=== PATIENT | female | born 1990 | race Caucasian/White ===

== ENCOUNTER 2019-10-17 08:34 | Outpatient (CLI) | payer OTHER, SELFPAY ==
--- NOTE | ~2019-10-17 | US_ITS ---
EXAMINATION: US OB <= 14 weeks fetus EXAM DATE: 10/17/2019 09:47 INDICATION: , for dating. First trimester. TECHNIQUE: Pelvic obstetrical transabdominal sonogram was performed by a technologist. There are mu ltiple grayscale and Doppler images available for interpretation. There are no earlier studies of th is gestation for comparison. FINDINGS: Uterus measures 14.2 x 6.2 x 8.7 cm. There is intrauterine gestation sac. pole with heart rate confirmed at 165 beats per minute. The 4.3 cm crown-rump length corresponds to estimated gestational age by ultrasound of 11 weeks 1 day, estimated date of confinement 05/06/2020. Yolk sac is identified. There is no sonographic evidence of subchorionic hemorrhage. The chorion appears t o be anteriorly located. Right ovary is morphologically normal, the left ovary is not identified. IMPRESSION: Live intrauterine gestation, age by ultrasound 11 weeks 1 day. Reviewed, dictated and finalized at location B.
== END 2019-10-17 08:35 | disposition home or self-care (01) ==
PROVIDERS: Visit Provider Obstetrics & Gynecology
DX: Z32.01 Encounter for pregnancy test, result positive (principal); Z3A.11 11 weeks gestation of pregnancy
CPT/HCPCS: 76801

== ENCOUNTER 2020-02-14 10:30 | Outpatient (RCR) | payer OTHER, SELFPAY ==
[2020-02-14 11:00] LABS: Hemoglobin 12.4 g/dL (12.0-15.0)
[2020-02-14 11:31] LABS: Hemoglobin A1C 4.8 % (<5.7)
[2020-02-14 11:48] LABS: Vitamin D 25 Hydroxy 41.3 ng/mL
[2020-02-14 11:52] LABS: HIV 1/2 Ab P24 Ag Result Negative (Negative)
[2020-02-15] MEDS: RHO(D) IMMUNE GLOBULIN 300 MCG SYRINGE IM (19:10)
== END 2020-05-14 23:59 | disposition home or self-care (01) ==
LOC: ANHLAB 10:30
PROVIDERS: Visit Provider Obstetrics & Gynecology
DX: Z29.13 Encounter for prophylactic Rho(D) immune globulin (principal); Z11.4 Encounter for screening for human immunodeficiency virus [HIV]; O36.0990 Maternal care for other rhesus isoimmunization, unspecified trimester, not applicable or unspecified; Z3A.00 Weeks of gestation of pregnancy not specified
CPT/HCPCS: 36415; 82306; 83036; 85014; 85018; 85461; 86703; 90384; 96372; G0432; J2790

== ENCOUNTER 2020-02-15 18:10 | Observation (INO) | payer OTHER, SELFPAY ==
[2020-02-15 18:30] VITALS: TEMP 36.5
[2020-02-15 18:31] VITALS: BP 155/88; PULSE 102
[2020-02-15 18:46] VITALS: BP 139/80; PULSE 95
[2020-02-15 19:01] VITALS: BP 154/93; PULSE 101
[2020-02-15] MEDS: TERBUTALINE SULFATE 1 MG/ML VIAL 0.25 MG SUB-Q (19:06)
[2020-02-15 19:07] LABS: Add Urine Microscopic? NO; Appearance Urine Clear (Clear); Bilirubin Urine Negative (Negative); Blood Urine Negative (Negative); Color Urine Straw (Yellow); Glucose Urine UA Negative (Negative); Ketones Urine Negative (Negative); Leukocyte Esterase Ur Negative LEU/UL (Negative); Nitrate Urine Negative (Negative); Protein Urine Negative (Negative); Specific Grav Ur 1.006 (1.001-1.035); Urobilinogen Urine Negative mg/dL (<2.0)
[2020-02-15 19:16] VITALS: BP 129/77; PULSE 104
[2020-02-15 19:35] LABS: Fetal Fibronectin Negative
[2020-02-15 19:53] VITALS: BMI 34.2
[2020-02-15 20:01] VITALS: BP 124/80; PULSE 97
--- NOTE | 2020-03-10 07:41 | P.PNOB_ITS ---
OB - Triage/Final Diagnosis Evaluation Laboratory results: Laboratory Tests 02/15/20 02/15/20 18:56 18:59 Urine Color Straw Urine Appearance Clear Urine pH 6.0 Ur Specific [place] 1.006 Urine Protein Negative Urine Glucose (UA) Negative Urine Ketones Negative Ur Blood (Man) Negative Urine Nitrate Negative Urine Bilirubin Negative Urine Urobilinogen Negative Leukocyte Esterase Rfl Negative Fibronectin Negative Final Diagnosis (1) contractions: Code(s): O47.9 - False labor, unspecified Status: Acute
--- NOTE | 2020-03-11 13:00 | PM.OBTRLD ---
OB - Triage/Final Diagnosis Evaluation Laboratory results: Laboratory Tests 02/15/20 02/15/20 18:56 18:59 Urine Color Straw Urine Appearance Clear Urine pH 6.0 Ur Specific [place] 1.006 Urine Protein Negative Urine Glucose (UA) Negative Urine Ketones Negative Ur Blood (Man) Negative Urine Nitrate Negative Urine Bilirubin Negative Urine Urobilinogen Negative Leukocyte Esterase Rfl Negative Fibronectin Negative Final Diagnosis (1) contractions: Code(s): O47.9 - False labor, unspecified Status: Acute
== END 2020-02-15 20:40 | disposition home or self-care (01) ==
PROVIDERS: Admitting Provider Obstetrics & Gynecology; Visit Provider Obstetrics & Gynecology
DX: O60.03 Preterm labor without delivery, third trimester (principal); Z3A.28 28 weeks gestation of pregnancy
CPT/HCPCS: 81003; 82731; 96372; G0378; G0379; J3105

== ENCOUNTER 2020-03-16 08:58 | Outpatient (RCR) | payer OTHER, SELFPAY ==
--- NOTE | ~2020-03-16 | US_ITS ---
EXAMINATION: US OB BPP wo non-stress DATE: 03/16/2020 10:25 INDICATION: Abnormal nonstress test. Gestational diabetes. Two-vessel cord. Third trimester. TECHNIQUE: Real-time pelvic ultrasound was performed. COMPARISON: Ultrasound 10/17/2019 FINDINGS: There is a single living fetus in vertex presentation. The placenta is anterior. heart rate is 161 beats per minute (bpm). The amniotic fluid index is 10.3 cm, which is normal. Biophysical profile performed by the technologist: breathing (30 sec sustained breathing in 30 minutes): 2 out of 2 movement (3 gross body movements in 30 minutes): 2 out of 2 tone (one episode of kecyttq-hfgjskjnr-pzduxqk limb movement): 2 out of 2 Amniotic fluid pocket (2 cm): 2 out of 2 Total score: 8 out of 8 IMPRESSION: 1. Single living fetus in vertex presentation. 2. Biophysical profile 8 out of 8. Reviewed, dictated and finalized at location B.
[2020-03-16 10:44] VITALS: BP 119/64; PULSE 92
== END 2020-04-29 15:21 | disposition home or self-care (01) ==
LOC: ANHOBOP 08:58
PROVIDERS: Visit Provider Obstetrics & Gynecology
DX: O24.419 Gestational diabetes mellitus in pregnancy, unspecified control (principal); Z3A.32 32 weeks gestation of pregnancy
CPT/HCPCS: 59025; 76819

== ENCOUNTER 2020-03-23 08:48 | Observation (INO) | payer OTHER, SELFPAY ==
--- NOTE | ~2020-03-23 | US_ITS ---
EXAMINATION: US OB limited EXAM DATE: 03/23/2020 12:22 INDICATION: , contractions. 3rd trimester. TECHNIQUE: Pelvic obstetrical transabdominal sonogram was performed by a technologist. There are mu ltiple grayscale and Doppler images available for interpretation. Comparison is made to prior examina tion from 03/16/2017. FINDINGS: There is a single fetus identified in vertex presentation with a heart rate of 154 beats pe r minute. The placenta is located in the anterior position. There is no sonographic evidence of retr oplacental hemorrhage identified. The amniotic fluid index is 11.2 centimeters, which is normal. IMPRESSION: 1. Single fetus with heart rate of 152 bpm. 2. Normal PAM 11.2 cm. Reviewed, dictated and finalized at location B.
[2020-03-23 09:07] VITALS: BP 132/79; PULSE 89
[2020-03-23 10:30] VITALS: BMI 34.0
[2020-03-23] MEDS: NIFEdipine 10 MG CAPSULE PO ×2 (10:48→11:36)
[2020-03-23 10:58] VITALS: TEMP 37.2
[2020-03-23 11:08] LABS: Add Urine Microscopic? NO; Appearance Urine Clear (Clear); Bilirubin Urine Negative (Negative); Blood Urine Negative (Negative); Color Urine Yellow (Yellow); Glucose Urine UA Negative (Negative); Ketones Urine Negative (Negative); Leukocyte Esterase Ur Negative LEU/UL (NEGATIVE); Nitrate Urine Negative (Negative); Protein Urine Negative (Negative); Specific Grav Ur 1.011 (1.001-1.035); Urobilinogen Urine Negative mg/dL (<2.0)
[2020-03-23 11:39] LABS: Fetal Fibronectin Negative
--- NOTE | 2020-03-23 14:18 | OBADM ---
This patient, Chitra Freeman, admitted to the OB room OB Post 112 for observation. Patient/family oriented to hospital policies and general routines including ID bracelet, bed and alarms, visiting hours, pain management, procedures, bathroom and other care routines, personal items, smoking policy, room service/diet, and visiting hours. Patient/Family are encouraged to report perceived risks to care and to ask questions if they do not understand what they are told or what they should do.
--- NOTE | 2020-03-23 14:20 | PC.NURSE ---
1025- called,informed pt was sent over from the office for pre-term contractions during her NST. Informed pt is elin every 6 minutes or so and states they are more uncomfortable than what they were in the office. Pt states she has had some watery discharge and tenderness all over her abdomen, informed ROM plus was performed but not done with results. Orders received to perform sterile spec,FFN,SVE bedside US for placenta check and PAM. 10mg of procardia ordered now and repeat in 30 minutes.
--- NOTE | 2020-03-23 14:24 | PC.NURSE ---
1227- called in for update, informed pt isn't elin anymore but still c/o lower back pain. Orders received to send home on procardia 10mg q8hrs.
[2020-03-24 02:39] LABS: Glucose Point of Care 79 (65-105)
[2020-03-24 02:39] LABS: Glucose Point of Care 65 (65-105)
--- NOTE | 2020-03-26 07:48 | PM.OBTRLD ---
OB - Triage/Final Diagnosis Evaluation Laboratory results: Laboratory Tests 03/23/20 03/23/20 03/23/20 10:58 10:58 11:30 POC Capillary Glucose 65 Urine Color Yellow Urine Appearance Clear Urine pH 6.0 Ur Specific [place] 1.011 Urine Protein Negative Urine Glucose (UA) Negative Urine Ketones Negative Ur Blood (Man) Negative Urine Nitrate Negative Urine Bilirubin Negative Urine Urobilinogen Negative Ur Leukocyte Esterase Negative Fibronectin Negative 03/23/20 12:21 POC Capillary Glucose 79 Urine Color Urine Appearance Urine pH Ur Specific [place] Urine Protein Urine Glucose (UA) Urine Ketones Ur Blood (Man) Urine Nitrate Urine Bilirubin Urine Urobilinogen Ur Leukocyte Esterase Fibronectin Final Diagnosis (1) contractions: Code(s): O47.9 - False labor, unspecified Status: Acute
== END 2020-03-23 13:10 | disposition home or self-care (01) ==
PROVIDERS: Admitting Provider Obstetrics & Gynecology; Visit Provider Obstetrics & Gynecology
DX: O47.03 False labor before 37 completed weeks of gestation, third trimester (principal); Z3A.33 33 weeks gestation of pregnancy
CPT/HCPCS: 76815; 81003; 82731; 84112; 87086; 87088; A9270; G0378; G0379

== ENCOUNTER 2020-04-16 16:06 | Outpatient (CLI) | payer OTHER, SELFPAY | END 2020-04-16 17:05 | disposition home or self-care (01) | LOC: ANHOBOP 17:00 | PROVIDERS: Visit Provider Obstetrics & Gynecology | DX: O41.8X90 Other specified disorders of amniotic fluid and membranes, unspecified trimester, not applicable or unspecified (principal) | CPT/HCPCS: 59025; 84112 ==

== ENCOUNTER 2020-04-29 04:49 | Inpatient (IN) | payer OTHER, SELFPAY ==
[2020-04-29] VITALS (29 sets, daily range): BP systolic 105–151; BP diastolic 57–100; PULSE 67–106; RESP 16–18; TEMP 36.3–37.3; O2SAT 96; BMI 33.8
--- NOTE | 2020-04-29 04:49 | LDADM ---
This patient, Chitra Freeman, was admitted to Labor/Delivery/Recovery 105 on 04/29/20 at 04:49. Plans for labor, pain management and were discussed with patient. Patient/family oriented to hospital policies and general routines including ID bracelet, bed and alarms, visiting hours, pain management, procedures, bathroom and other care routines, personal items, smoking policy, room service/diet and guest tray routines, infant security routines, and visiting hours. Patient/Family are encouraged to report perceived risks to care and to ask questions if they do not understand what they are told or what they should do. See OBIX for further documentation.
[2020-04-29 05:17] LABS: Glucose Point of Care 97 (65-105)
[2020-04-29 05:19] LABS: Basophils Percent Auto 0.3 % (0.2-1.2); Eosinophils Absolute Auto 0.2 K/mm3 (0-0.3); Hematocrit 39.3 % (37.0-47.0); Hemoglobin 13.4 g/dL (12.0-15.0); Immature Granulocyte Absolute 0.04 K/mm3 (0.00-0.031); Immature Granulocyte Percent A 0.4 % (0-0.5); Lymphocytes Absolute Auto 2.03 K/mm3 (0.9-3.2); Lymphocytes Percent Auto 21.9 % (18.3-44.2); Mean Corpuscular HGB Conc 34.1 g/dl (32-36); Mean Corpuscular Hemoglobin 27.5 pg (26-34); Mean Corpuscular Volume 80.7 fl (80-100); Mean Platelet Volume 10.4 fl (7.4-10.4); Monocytes Absolute Auto 0.6 K/mm3 (0.1-0.6); Monocytes Percent Auto 5.9 % (2.6-8.5); Neutrophils Absolute Auto 6.5 K/mm3 (1.3-6.7); Neutrophils Percent Auto 69.5 % (45.5-73.1); Platelet Count Result 288 k/mm3 (150-375); Red Blood Count 4.87 M/mm3 (4.2-5.4); Red Cell Distribution Width 14.1 % (11.5-14.5); White Blood Count 9.3 K/mm3 (4.5-10.0)
[2020-04-29] MEDS: AMPICILLIN 2 GM/NS 100 ML 2 GM/100 ML BAG IVPB (05:19)
[2020-04-29] MEDS: LACTATED RINGERS 1,000 ML 125 ML IV CONT (05:20)
[2020-04-29] MEDS: OXYTOCIN 30 UNITS/NS 500 ML 30 UNITS/500 ML BAG IV CONT (05:44)
[2020-04-29 07:56] LABS: Rapid Plasma Reagin Non-Reactive (NonReactive)
[2020-04-29 08:02] LABS: Glucose Point of Care 76 (65-105)
--- NOTE | 2020-04-29 08:43 | WPDOBADMIT ---
Obstetrics - Admit Note Admission Note: AROM clear fluid /-2 vertex record reviewed. No pertinent additions to the history and/or any subsequent changes in the physical findings that are not consistent with the expected course of the were found. Additions to the history and/or subsequent changes in the physical findings follow. None.
[2020-04-29] MEDS: AMPICILLIN 1 GM/NS 50 ML 1 GM/50 ML BAG IVPB (09:25)
[2020-04-29] MEDS: OXYTOCIN 30 UNITS/NS 500 ML 30 UNITS/500 ML BAG 125 UNITS IV CONT (10:54)
[2020-04-29 11:41] LABS: Glucose Point of Care 72 (65-105)
[2020-04-29] MEDS: IBUPROFEN 600 MG TABLET PO (13:04)
[2020-04-29] MEDS: WITCH HAZEL 40 PADS 1 PAD TOPICAL (13:06)
[2020-04-29] MEDS: BENZOCAINE 20% AER SPR (*SP) 56 GM CAN 1 SPRAY TOPICAL (13:06)
--- NOTE | 2020-04-29 15:10 | PC.NURSE ---
Dr. Nance updated on QBL. Discussed pt had an additional 373 gms of blood loss during recovery- never really had any gushes with fundal massage or any clots- just more blood loss than expected. Pt voided and Pitocin continued. Pt was just going to be moved upstairs and peripad and ice pack were saturated with rubra again- small stringy clot noted on pad- additional 221 QBL noted. Order received for Methergine IM x's 1.
--- NOTE | 2020-04-29 15:10 | PC.NURSE ---
Dr. Nance also informed her 2nd IV bag with Pitocin just finished infusing.
[2020-04-29] MEDS: METHYLERGONOVINE MALEATE 0.2 MG/ML VIAL IM (15:20)
--- NOTE | 2020-04-29 19:16 | OBPPTRN ---
Patient transferred to post room # [id number] (wheelchair ). Support person present. Oriented to unit, room, information board, rooming in, admission packet and security measures. Patient verbalizes understanding.
[2020-04-30] MEDS: IBUPROFEN 600 MG TABLET PO ×2 (00:22→09:44)
[2020-04-30 03:22] LABS: Hemoglobin 11.5 g/dL (12.0-15.0)
[2020-04-30 08:35] VITALS: BP 130/79; PULSE 82; RESP 18; TEMP 36.7; O2SAT 100
[2020-04-30 09:00] VITALS: PULSE 82; RESP 18; O2SAT 100
[2020-04-30] MEDS: MULTIVIT/MIN/PREN/FOL AC/IRON TABLET 1 TAB PO (09:43)
--- NOTE | 2020-04-30 11:25 | PC.NURSE ---
Patient was given the opportunity to view the discharge video Mother & Baby Care, The First Two Weeks and to ask questions. Patient declined viewing the video and has been given the mother/baby guide for home reference.
--- NOTE | 2020-04-30 12:19 | WPDOBCIRC ---
OB [place] - Circumcision Consent: Potential risks, benefits, and alternatives have been discussed and questions answered. Family agrees to proceed with circumcision. Preoperative Diagnosis: Normal Foreskin. Postoperative Diagnosis: Normal Foreskin. Date of Circumcision: 04/30/20 Time of Circumcision: 08:45 Type of Circumcision: GOMCO with 1.1 Anesthesia: Ring Block Foreskin: The foreskin was examined and found to be grossly normal. Estimated Blood Loss: Minimal
[2020-04-30] MEDS: RHO(D) IMMUNE GLOBULIN 300 MCG SYRINGE IM (12:53)
[2020-05-01 10:22] VITALS: BP 128/74; PULSE 73; RESP 20; O2SAT 98
--- NOTE | 2020-05-09 11:11 | PM.OBPRVD ---
OB - Delivery Note Procedure Delivery date: 04/29/20 Procedure: events: Gestational Diabetes Intrapartal events: None Induction method: AROM and per pitocin protocol Delivery monitor: external FHT and external uterine Route of delivery: Episiotomy description: None Laceration description: None Delivery repair: vicryl Specimen: Yes Estimated blood loss (mL): 200 Anesthesia type: Epidural Baby Date of : 04/29/20 Time of : 10:18 Weeks of gestation at delivery: 39 gender: Male Weight (pounds): 7 Weight (ounces): 0 presentation: vertex position: Left Occiput Anterior Placenta delivery description: Spontaneous cord vessel description: 3 Vessels and Clamped/Cut score one minute: 9 score five minutes: 9
--- NOTE | 2020-05-09 11:17 | PM.OBDSVD ---
DS: Admitting Diagnosis Admitting Diagnosis Admitting Diagnosis: Induction of Labor DS: Discharge Diagnosis Discharge Diagnosis (1) (normal spontaneous vaginal delivery): Code(s): O80 - Encounter for full-term uncomplicated delivery Status: Acute OB - DS: Summary OB Procedures : Ultrasound OB Procedures Intrapartum: Spontaneous Vag Delivery OB Procedures: : None Time Spent with Patient Time attestation: Total time spent providing and/or coordinating discharge services: DS: Data Data Completed and Pending Completed studies during hospitalization: Pending at discharge 04/29/20 10:24 Surgical [PTH] Routine Discharge Plan Discharge Attending physician on discharge: Helder Nance Discharging Clinician: Helder Nance Patient Disposition: Home, Self-Care Activity: pelvic rest Diet: regular Discharge Instructions: Education: Mom and Baby Guide Given to: Mother Follow-Up: Call your delivering provider's office for an appointment to be seen in: Call for appointment Mom and baby should come [facility] for the follow-up appointment. Appointment Date/Time: Friday, May 01, 2020 at 10:00 am What to expect at your follow-up visit: Blood Pressure Check Physical Assessment Call [phone] if you are unable to keep your appointment time. BREAST CARE: * Wear a snug supportive bra. * For engorgement discomfort: Breast Feeding: * Apply warm moist washcloths * Express milk as needed to relieve engorgement * Wear loose clothing Bottle Feeding: * May apply ice packs * For sore nipples: * Identify correct latch-on * Apply warm moist washcloths before and after nursing * Air dry nipples after nursing * May apply Lansinoh cream to nipples EPISIOTOMY/PERINEAL CARE: * Until bleeding stops, use your blair bottle after urinating * Change your pad frequently throughout the day * You may take sitz baths several times a day (fill your bathtub with warm water and soak for 20 minutes.) Do NOT bathe in the water * No tub baths until seen by your physician - You may shower ACTIVITY: * Rest as much as possible. * Do not exercise or lift anything heavier than your baby (such as laundry or other children.) * Avoid stairs or driving as much as possible. * Do not put anything into the vagina. No douching, tampons, or sexual activity until seen by physician. NOTIFY PHYSICIAN IF YOU HAVE ANY QUESTIONS OR IF ANY OF THE FOLLOWING SYMPTOMS OCCUR: * If your vaginal bleeding becomes foul smelling. * If your vaginal bleeding becomes more heavy than a period or if your bleeding changes from pink to bright red. However, you may pass an occasional walnut-sized clot once or twice for the first week . * If you experience a sharp, shooting pain in you calves. * If you discover a hard, reddened area on your breast or if you experience flu-like symptoms. DIET: * Eat regular, well-balanced meals. * Drink plenty of fluids daily. If , drink to thirst. Stand Alone Forms: General Discharge Information Follow-up/Referrals: Helder Nance MD [Physician] - Discharge Medications: Continued PNV [id number] fumarate-FA [] 28 mg iron- 800 mcg Tablet 1 tablet PO DAILY RF: 0 ergocalciferol (vitamin D2) 1,250 mcg (50,000 unit) capsule See Rx Instructions .ROUTE .COMPLEX RF: 0 Discontinued insulin aspart U-100 [Novolog U-100 Insulin aspart] 100 unit/mL solution See Rx Instructions .ROUTE .COMPLEX RF: 0 Novolin N NPH U-100 Insulin 100 unit/mL suspension 4 unit SUBCUT QAM RF: 0 insulin aspart U-100 [Novolog U-100 Insulin aspart] 100 unit/mL solution 36 unit subcut HS RF: 0 Novolin N NPH U-100 Insulin 100 unit/mL suspension 22 unit SUBCUT QACDINNER RF: 0 Date of admission: 04/29/20 04:49
== END 2020-04-30 14:00 | disposition home or self-care (01) | DRG 807 ==
LOC: ANHLDR 04:53 → ANHOB2 15:48
PROVIDERS: Admitting Provider Obstetrics & Gynecology; Visit Provider Obstetrics & Gynecology
DX: O24.424 Gestational diabetes mellitus in childbirth, insulin controlled (principal); Z37.0 Single live birth; Z3A.39 39 weeks gestation of pregnancy; O69.89X0 Labor and delivery complicated by other cord complications, not applicable or unspecified; O62.3 Precipitate labor
CPT/HCPCS: 36415; 85014; 85018; 85025; 85461; 86592; 86850; 86880; 86900; 86901; 86902; 88307; 90384; A9270; J0290; J2210; J2590; J2790; J2795; J7120

== ENCOUNTER 2020-08-21 00:35 | Outpatient (CLI) | payer OTHER, SELFPAY ==
[2020-08-21 18:46] LABS: SARS-CoV-2 RNA PCR Negative
== END 2020-08-21 00:36 | disposition home or self-care (01) ==
LOC: ANHCOVIDDT 00:36
PROVIDERS: Visit Provider Obstetrics & Gynecology
DX: Z01.812 Encounter for preprocedural laboratory examination (principal); Z20.822 Contact with and (suspected) exposure to COVID-19
CPT/HCPCS: C9803; U0003; U0005

== ENCOUNTER 2020-12-14 14:31 | Emergency (ER) | payer OTHER, SELFPAY ==
[2020-12-14] VITALS (8 sets, daily range): BP systolic 138–161; BP diastolic 91–117; PULSE 78–86; RESP 16–18; TEMP 36.1–36.8; O2SAT 97–100
[2020-12-14 17:53] LABS: Basophils Absolute Auto 0.1 K/mm3 (0.0-0.1); Basophils Percent Auto 0.4 % (0.2-1.2); Eosinophils Absolute Auto 0.1 K/mm3 (0-0.3); Eosinophils Percent Auto 0.9 % (0-4.4); Hemoglobin 14.4 g/dL (12.0-15.0); Immature Granulocyte Absolute 0.05 K/mm3 (0.00-0.031); Immature Granulocyte Percent A 0.4 % (0-0.5); Immature Platelet Fraction Pct 4.3 % (0.9-11.2); Lymphocytes Absolute Auto 1.85 K/mm3 (0.9-3.2); Lymphocytes Percent Auto 13.7 % (18.3-44.2); Mean Corpuscular HGB Conc 34.3 g/dl (32-36); Mean Corpuscular Hemoglobin 27.5 pg (26-34); Mean Corpuscular Volume 80.3 fl (80-100); Mean Platelet Volume 10.3 fl (7.4-10.4); Monocytes Absolute Auto 0.4 K/mm3 (0.1-0.6); Neutrophils Percent Auto 81.6 % (45.5-73.1); Platelet Count Result 363 k/mm3 (150-375); Red Blood Count 5.23 M/mm3 (4.2-5.4); Red Cell Distribution Width 12.5 % (11.5-14.5); White Blood Count 13.5 K/mm3 (4.5-10.0)
[2020-12-14 18:01] LABS: Anion Gap 10 mmol/L (8-16); Blood Urea Nitrogen 10 mg/dL (7-17); Carbon Dioxide 22 mmol/L (22-30); Chloride 106 mmol/L (98-107); Estimated CRCL calculation 179 ml/min; Estimated Glomerular Filt Rate > 60; Glucose 143 mg/dL (65-105); Potassium 4.2 mmol/L (3.4-5.0); Sodium 138 mmol/L (137-145)
--- NOTE | 2020-12-14 18:09 | ED.GENADULT ---
HPI - General Adult General Chief complaint: Headache Stated complaint: migraine all weekend, high bp Time Seen by Provider: 12/14/20 17:29 Source: patient and RN notes reviewed Mode of arrival: ambulatory Limitations: no limitations History of Present Illness HPI narrative: Patient is a 30-year-old female who presents to emergency department for evaluation of migraine headache noting history of chronic migraines since the of her child 8 months ago she has been having increasing migraines is also getting ready to start a new job. Patient denies any injury or trauma or illness. Patient notes she has had some emesis. Patient is followed by her primary care doctor for this. Patient took [id number] medications with minimal improvement on arrival presents with normal gait no distress Related Data Allergies Allergy/AdvReac Type Severity Reaction Status Date / Time No Known Allergies Allergy Verified 12/14/20 17:36 Review of Systems Review of Systems: All systems reviewed & are unremarkable except as noted in HPI and below PMFSH Past Medical History Medical History (normal spontaneous vaginal delivery) contractions Family History Family History Mother Diabetes mellitus Sibling Diabetes mellitus Depression Father Depression Social History Social History Smoking status: Former smoker Substance use: never Last use: 2013 Gender identity (if verbalized by the patient): Female Spiritual care concerns: No Exam Narrative: Exam Narrative: GENERAL: Well-appearing, well-nourished, and in no acute distress. HEAD: Normocephalic, atraumatic. EYES: PERRLA and EOMI. ENT: Nares clear, no rhinorrhea or epistaxis. Mucous membranes moist. NECK: Supple. No adenopathy or masses. No carotid bruits or JVD CHEST: Clear to auscultation. No respiratory distress. No wheezes rales or rhonchi HEART: Regular rate and rhythm. No murmur heard. EXTREMITIES: Normal range of motion. No edema. SKIN: Warm, dry, no rash. NEURO: No focal deficits. Alert and oriented x3. Cranial nerves II through XII grossly intact. Normal speech and gait PSYCH: Normal mood and affect. Course Course Emergency Course: Patient in the room no distress feeling much better will be discharged home Vital Signs Vital signs: Vital Signs Temperature 97.0 F L 12/14/20 15:24 Pulse Rate 86 12/14/20 15:24 Respiratory Rate 18 12/14/20 15:24 Blood Pressure 161/98 H 12/14/20 15:24 Pulse Oximetry 100 12/14/20 15:24 Temperature 97.0 F L 12/14/20 15:24 Pulse Rate 80 12/14/20 18:01 Respiratory Rate 16 12/14/20 18:01 Blood Pressure 142/91 H 12/14/20 18:16 Pulse Oximetry 98 12/14/20 18:16 Medical Decision Making MDM Narrative Medical decision making narrative: Patients headache was not sudden or maximal in onset. There are o focal neurological deficits on exam. Subarachnoid hemorrhage is felt to be unlikey at this time. There is no history of fever, and neck is supple without meningismus, making meningitis unlikely. No traumatic history or signs of trauma on exam. No risk factors for CVA, risk factors reviewed. NO ocular signs on exam and in history to suggest acute glaucoma. Patients headache is felt to be a reasonable candidate for outpatient evaluation Vital Signs Vital Signs: Vital Signs Temperature 97.0 F L 12/14/20 15:24 Pulse Rate 86 12/14/20 15:24 Respiratory Rate 18 12/14/20 15:24 Blood Pressure 161/98 H 12/14/20 15:24 Pulse Oximetry 100 12/14/20 15:24 Temperature 97.0 F L 12/14/20 15:24 Pulse Rate 80 12/14/20 18:01 Respiratory Rate 16 12/14/20 18:01 Blood Pressure 142/91 H 12/14/20 18:16 Pulse Oximetry 98 12/14/20 18:16 Lab Data Result diagrams: 12/14/20 17:45 12/14/20 17:45
[2020-12-14] MEDS: KETOROLAC 30 MG/ML VIAL (*BKC) IV PUSH (18:26)
[2020-12-14] MEDS: diphenhydrAMINE HCl INJ 50 MG/ML VIAL 25 MG IV PUSH (18:26)
[2020-12-14] MEDS: FAMOTIDINE 20 MG/2 ML VIAL IV PUSH (18:26)
[2020-12-14] MEDS: SODIUM CHLORIDE 0.9% IV 1,000 ML 999 ML IV CONT (18:27)
[2020-12-14] MEDS: METOCLOPRAMIDE HCL INJ 10 MG/2 ML VIAL IV PUSH (18:27)
== END 2020-12-14 19:57 | disposition home or self-care (01) ==
PROVIDERS: Emergency Medicine; Emergency Provider Family Medicine; PCP Family Medicine
DX: G43.909 Migraine, unspecified, not intractable, without status migrainosus (principal); Z87.891 Personal history of nicotine dependence
CPT/HCPCS: 36415; 80048; 85025; 85055; 96361; 96374; 96375; 99284; J1200; J1885; J2765; J7030

== ENCOUNTER 2021-03-30 15:41 | Outpatient (CLI) | payer OTHER, SELFPAY ==
--- NOTE | ~2021-03-30 | US_ITS ---
US OB <= 14 weeks fetus DATE: 03/30/2021 16:14 INDICATION: Uncertain dates. Determine estimated gestational age TECHNIQUE: Real-time imaging and Doppler analysis COMPARISON: None FINDINGS: The uterus measures 13.1 cm height, 7.5 cm anteroposterior and 8.9 cm transverse dimension. heart rate of 165 bpm. Posterior placenta. Normal amount of amniotic fluid. No pelvic mass lesion or abnormal pelvic fluid collection is detected. [place]-rump length averages 5.09 cm, consistent with 11 weeks 6 days +/- 1 week estimated gestational age with GRAHAM of 10/23/2021. IMPRESSION: [place]-rump length averages 5.09 cm, consistent with 11 weeks 6 days +/- 1 week estimated gestational age with GRAHAM of 10/13/2021 Reviewed, dictated and finalized at Location A. Reviewed, dictated and finalized at location A.
== END 2021-03-30 15:42 | disposition home or self-care (01) ==
PROVIDERS: Visit Provider Nurse Practitioner
DX: Z36.87 Encounter for antenatal screening for uncertain dates (principal); Z3A.11 11 weeks gestation of pregnancy
CPT/HCPCS: 76801

== ENCOUNTER 2021-07-21 10:41 | Observation (INO) | payer OTHER, SELFPAY ==
[2021-07-21] VITALS (22 sets, daily range): BP systolic 127; BP diastolic 78; PULSE 81–100; RESP 16–18; O2SAT 97–100; BMI 33.2
--- NOTE | 2021-07-21 10:41 | OBADM ---
This patient, Chitra Freeman, admitted to the OB room OB Post 117 for observation. Patient/family oriented to hospital policies and general routines including ID bracelet, bed and alarms, visiting hours, pain management, procedures, bathroom and other care routines, personal items, smoking policy, room service/diet, and visiting hours. Patient/Family are encouraged to report perceived risks to care and to ask questions if they do not understand what they are told or what they should do.
[2021-07-21 12:59] LABS: Add Urine Microscopic? YES; Appearance Urine Clear (Clear); Bacteria Urine Trace /hpf; Bilirubin Urine Negative (Negative); Blood Urine Negative (Negative); Color Urine Yellow (Yellow); Glucose Urine UA Negative (Negative); Ketones Urine Negative (Negative); Leukocyte Esterase Ur Negative LEU/UL (Negative); Mucus Urine Rare /lpf; Nitrate Urine Negative (Negative); Protein Urine Negative (Negative); RBC Urine 0-2 /hpf (0-2); Specific Grav Ur 1.018 (1.001-1.035); Squamous Epithelial Cell Urine Occasional /hpf (Few); Urobilinogen Urine Negative mg/dL (<2.0); WBC Urine 0-3 /hpf
[2021-07-21] MEDS: TERBUTALINE SULFATE 1 MG/ML VIAL 0.25 MG SUB-Q (13:33)
[2021-07-21 14:20] LABS: Fetal Fibronectin Negative
--- NOTE | 2021-08-02 08:44 | PM.OBTRLD ---
OB - Triage/Final Diagnosis Visit Information Reason for evaluation: threatened labor Comments/Additional reasons for admission: I have assessed the risk for this patient, Chitra Freeman, and determined that she would benefit from observation care. Evaluation Laboratory results: Laboratory Tests 07/21/21 07/21/21 12:33 13:36 Urine Color Yellow Urine Appearance Clear Urine pH 6.0 Ur Specific [place] 1.018 Urine Protein Negative Urine Glucose (UA) Negative Urine Ketones Negative Ur Blood (Man) Negative Urine Nitrate Negative Urine Bilirubin Negative Urine Urobilinogen Negative Leukocyte Esterase Rfl Negative Urine RBC 0-2 Urine WBC 0-3 Ur Squamous Epith Cells Occasional Urine Bacteria Trace Urine Mucus Rare Fibronectin Negative
== END 2021-07-21 15:35 | disposition home or self-care (01) ==
PROVIDERS: Admitting Provider Obstetrics & Gynecology Gynecology; Visit Provider Obstetrics & Gynecology Gynecology
DX: O47.03 False labor before 37 completed weeks of gestation, third trimester (principal); Z3A.28 28 weeks gestation of pregnancy
CPT/HCPCS: 81001; 82731; 96372; G0378; G0379; J3105

== ENCOUNTER 2021-07-25 10:02 | Outpatient (RCR) | payer OTHER, SELFPAY ==
[2021-07-22 12:50] LABS: Hematocrit 32.8 % (37.0-47.0); Hemoglobin 10.8 g/dL (12.0-15.0)
[2021-07-22 13:29] LABS: Vitamin D 25 Hydroxy 38.1 ng/mL
[2021-07-22 13:37] LABS: Hemoglobin A1C 4.6 % (<5.7)
[2021-07-22 13:43] LABS: HIV 1/2 Ab P24 Ag Result Negative (Negative)
[2021-07-25] MEDS: RHO(D) IMMUNE GLOBULIN 300 MCG/2 ML SYRINGE IM (10:16)
== END 2021-07-25 10:05 | disposition home or self-care (01) ==
LOC: ANHLAB 10:02
PROVIDERS: Visit Provider Obstetrics & Gynecology Gynecology
DX: Z11.4 Encounter for screening for human immunodeficiency virus [HIV] (principal); Z29.13 Encounter for prophylactic Rho(D) immune globulin; O24.415 Gestational diabetes mellitus in pregnancy, controlled by oral hypoglycemic drugs; E55.9 Vitamin D deficiency, unspecified; Z67.41 Type O blood, Rh negative; Z79.4 Long term (current) use of insulin; Z3A.00 Weeks of gestation of pregnancy not specified
CPT/HCPCS: 36415; 82306; 83036; 85014; 85018; 85461; 86703; 90384; 96372; G0432; J2790

== ENCOUNTER 2021-09-10 12:08 | Observation (INO) | payer OTHER, SELFPAY ==
[2021-09-10] VITALS (11 sets, daily range): PULSE 80–96; O2SAT 98–100
[2021-09-10] MEDS: TERBUTALINE SULFATE 1 MG/ML VIAL 0.25 MG SUB-Q (13:49)
--- NOTE | 2021-09-10 14:57 | OBADM ---
This patient, Chitra Freeman, admitted to the OB room Labor/Delivery/Recovery 119 for observation. Patient/family oriented to hospital policies and general routines including ID bracelet, bed and alarms, visiting hours, pain management, procedures, bathroom and other care routines, personal items, smoking policy, room service/diet, and visiting hours. Patient/Family are encouraged to report perceived risks to care and to ask questions if they do not understand what they are told or what they should do.
--- NOTE | 2021-09-10 15:01 | PC.NURSE ---
1422--Nst reactive; pt c/o contractions. Monitoring resumed.SVE- One dose of Terbutaline given-contractions stopped.
--- NOTE | 2021-09-15 07:35 | PM.OBTRLD ---
OB - Triage/Final Diagnosis Visit Information Reason for evaluation: threatened labor Comments/Additional reasons for admission: I have assessed the risk for this patient, Chitra Federico Freeman, and determined that she would benefit from observation care.
== END 2021-09-10 14:20 | disposition home or self-care (01) ==
PROVIDERS: Admitting Provider Obstetrics & Gynecology Gynecology; Visit Provider Obstetrics & Gynecology Gynecology
DX: O47.03 False labor before 37 completed weeks of gestation, third trimester (principal); Z3A.35 35 weeks gestation of pregnancy
CPT/HCPCS: 96372; G0378; G0379; J3105

== ENCOUNTER 2021-09-10 12:08 | Outpatient (RCR) | payer OTHER, SELFPAY ==
[2021-09-10 13:52] VITALS: BP 123/77; PULSE 87
== END 2021-10-19 10:47 | disposition home or self-care (01) ==
LOC: ANHOBOP 12:08
PROVIDERS: Visit Provider Obstetrics & Gynecology Gynecology
DX: P59.9 Neonatal jaundice, unspecified (principal)
CPT/HCPCS: 59025

== ENCOUNTER 2021-10-01 14:09 | Observation (INO) | payer OTHER, SELFPAY ==
--- NOTE | 2021-10-01 16:25 | OBADM ---
This patient, Chitra Freeman, admitted to the OB room Labor/Delivery/Recovery 105 for observation. Patient/family oriented to hospital policies and general routines including ID bracelet, bed and alarms, visiting hours, pain management, procedures, bathroom and other care routines, personal items, smoking policy, room service/diet, and visiting hours. Patient/Family are encouraged to report perceived risks to care and to ask questions if they do not understand what they are told or what they should do.
== END 2021-10-01 16:50 | disposition home or self-care (01) ==
PROVIDERS: Admitting Provider Obstetrics & Gynecology Gynecology; Visit Provider Obstetrics & Gynecology Gynecology
DX: O47.1 False labor at or after 37 completed weeks of gestation (principal); Z3A.38 38 weeks gestation of pregnancy
CPT/HCPCS: G0378; G0379

== ENCOUNTER 2021-10-07 05:54 | Inpatient (IN) | payer OTHER, SELFPAY ==
[2021-10-07] VITALS (79 sets, daily range): BP systolic 89–159; BP diastolic 48–100; PULSE 59–96; RESP 18; TEMP 36.6–37.1; O2SAT 96–100; BMI 33.3
[2021-10-07 06:44] LABS: Alanine Aminotransferase 19 U/L (4-35); Albumin Level 3.4 g/dL (3.5-5.1); Alkaline Phosphatase 129 U/L (38-126); Anion Gap 6 mmol/L (8-16); Aspartate Amino Transferase 28 U/L (14-36); Bilirubin,Total 0.3 mg/dL (0.2-1.3); Blood Urea Nitrogen 9 mg/dL (7-17); Calcium 9.2 mg/dL (8.4-10.2); Carbon Dioxide 19 mmol/L (22-30); Chloride 109 mmol/L (98-107); Estimated CRCL calculation 172 ml/min; Estimated Glomerular Filt Rate > 60; Glucose 84 mg/dL (65-110); Potassium 3.8 mmol/L (3.4-5.0); Sodium 134 mmol/L (137-145); Uric Acid 5.5 mg/dL (2.5-7.5)
[2021-10-07] MEDS: LACTATED RINGERS 1,000 ML 125 ML IV CONT (06:53)
[2021-10-07 06:55] LABS: Basophils Percent Auto 0.5 % (0.2-1.2); Eosinophils Absolute Auto 0.1 K/mm3 (0-0.3); Eosinophils Percent Auto 1.6 % (0-4.4); Hematocrit 36.3 % (37.0-47.0); Immature Granulocyte Absolute 0.04 K/mm3 (0.00-0.031); Immature Granulocyte Percent A 0.5 % (0-0.5); Lymphocytes Absolute Auto 1.58 K/mm3 (0.9-3.2); Lymphocytes Percent Auto 19.4 % (18.3-44.2); Mean Corpuscular HGB Conc 33.1 g/dl (32-36); Mean Corpuscular Hemoglobin 27.1 pg (26-34); Mean Corpuscular Volume 82.1 fl (80-100); Mean Platelet Volume 10.7 fl (7.4-10.4); Monocytes Absolute Auto 0.5 K/mm3 (0.1-0.6); Monocytes Percent Auto 6.6 % (2.6-8.5); Neutrophils Absolute Auto 5.8 K/mm3 (1.3-6.7); Neutrophils Percent Auto 71.4 % (45.5-73.1); Platelet Count Result 269 k/mm3 (150-375); Red Blood Count 4.42 M/mm3 (4.2-5.4); Red Cell Distribution Width 14.7 % (11.5-14.5); White Blood Count 8.2 K/mm3 (4.5-10.0)
[2021-10-07] MEDS: OXYTOCIN 30 UNITS/NS 500 ML 30 UNITS/500 ML BAG IV CONT (07:15)
--- NOTE | 2021-10-07 07:51 | WPDOBADMIT ---
Obstetrics - Admit Note Admission Note: record reviewed. No pertinent additions to the history and/or any subsequent changes in the physical findings that are not consistent with the expected course of the were found. Additions to the history and/or subsequent changes in the physical findings follow. Here for MIL at 39 wks for GDMA2. Cervix 4/50/-2 AROM with clear fluid.
--- NOTE | 2021-10-07 08:16 | LDADM ---
This patient, Chitra Freeman, was admitted to Labor/Delivery/Recovery 105 on 10/07/21 at 05:54. Plans for labor, pain management and were discussed with patient. Patient/family oriented to hospital policies and general routines including ID bracelet, bed and alarms, visiting hours, pain management, procedures, bathroom and other care routines, personal items, smoking policy, room service/diet and guest tray routines, infant security routines, and visiting hours. Patient/Family are encouraged to report perceived risks to care and to ask questions if they do not understand what they are told or what they should do. See OBIX for further documentation.
[2021-10-07 08:41] LABS: Glucose Point of Care 74 mg/dl (65-105)
--- NOTE | 2021-10-07 10:11 | WPDANESEPP ---
Anes - Eval Pre Procedure Procedure: labor epidural Date/Time: 10/07/21 10:11 Surgeon: alexander Preop Diagnosis: pain during labor Pre Op Diagnosis: IOL Patient Data Age: 31 Gender: F Height: 1.75 m Weight: 102.5 kg Last Vital Signs Temp 37.1 C 10/07/21 09:00 Pulse 78 10/07/21 10:01 BP 117/91 H 10/07/21 10:01 Allergies Allergy/AdvReac Type Severity Reaction Status Date / Time No Known Allergies Allergy Verified 07/21/21 15:16 Home Medications Medication Instructions Recorded Confirmed Type Humulin U Insulin 38 units SUBCUT HS 07/21/21 10/07/21 History fluoxetine [Prozac] 20 mg PO DAILY 07/21/21 10/07/21 History insulin lispro 1 sliding scale dose SUBCUT 07/21/21 10/07/21 History USEASDIRECTD #0 labetalol 100 mg PO BID 07/21/21 10/01/21 History metformin 1,000 mg PO BID 07/21/21 10/07/21 History PNV cmb#95-ferrous fumarate-FA 1 tablet PO DAILY 09/18/21 10/07/21 History [] ferrous sulfate [Iron (ferrous 325 mg PO DAILY 09/18/21 10/07/21 History sulfate)] Laboratory Tests 10/07/21 10/07/21 10/07/21 06:24 06:24 06:24 WBC 8.2 K/mm3 K/mm3 (4.5-10.0) RBC 4.42 M/mm3 M/mm3 (4.2-5.4) Hgb 12.0 g/dL g/dL (12.0-15.0) Hct 36.3 % L % (37.0-47.0) MCV 82.1 fl fl (80-100) MCH 27.1 pg pg (26-34) MCHC 33.1 g/dl g/dl (32-36) RDW 14.7 % H % (11.5-14.5) Plt Count 269 k/mm3 k/mm3 (150-375) MPV 10.7 fl H fl (7.4-10.4) Immature Gran % (Auto) 0.5 % % (0-0.5) Neut % (Auto) 71.4 % % (45.5-73.1) Lymph % (Auto) 19.4 % % (18.3-44.2) [place] % (Auto) 6.6 % % (2.6-8.5) Eos % (Auto) 1.6 % % (0-4.4) Baso % (Auto) 0.5 % % (0.2-1.2) Lymph # (Auto) 1.58 K/mm3 K/mm3 (0.9-3.2) [place] # (Auto) 0.5 K/mm3 K/mm3 (0.1-0.6) Eos # (Auto) 0.1 K/mm3 K/mm3 (0-0.3) Baso # (Auto) 0.0 K/mm3 K/mm3 (0.0-0.1) Abs Immat Gran (auto) 0.04 K/mm3 H K/mm3 (0.00-0.031) Absolute Neuts (auto) 5.8 K/mm3 K/mm3 (1.3-6.7) Absolute Nucleated RBC 0.0 K/mm3 K/mm3 (0.0-0.012) Nucleated RBC % 0.0 % % (0.0-0.2) Sodium Potassium Chloride Carbon Dioxide Anion Gap BUN Creatinine Estim Creat Clear Calc Estimated GFR Glucose POC Capillary Glucose Uric Acid Calcium Total Bilirubin AST ALT Alkaline Phosphatase Total Protein Albumin RPR Pending Blood Type O Negative Antibody Screen Negative 10/07/21 10/07/21 06:28 08:39 WBC RBC Hgb Hct MCV MCH MCHC RDW Plt Count MPV Immature Gran % (Auto) Neut % (Auto) Lymph % (Auto) [place] % (Auto) Eos % (Auto) Baso % (Auto) Lymph # (Auto) [place] # (Auto) Eos # (Auto) Baso # (Auto) Abs Immat Gran (auto) Absolute Neuts (auto) Absolute Nucleated RBC Nucleated RBC % Sodium 134 mmol/L L mmol/L (137-145) Potassium 3.8 mmol/L mmol/L (3.4-5.0) Chloride 109 mmol/L H mmol/L (98-107) Carbon Dioxide 19 mmol/L L mmol/L (22-30) Anion Gap 6 mmol/L L mmol/L (8-16) BUN 9 mg/dL mg/dL (7-17) Creatinine 0.50 mg/dL L mg/dL (0.7-1.0) Estim Creat Clear Calc 172 ml/min ml/min Estimated GFR > 60 (59 - ) Glucose 84 mg/dL mg/dL (65-110) POC Capillary Glucose 74 mg/dl mg/dl (65-105) Uric Acid 5.5 mg/dL mg/dL (2.5-7.5) Calcium 9.2 mg/dL mg/dL (8.4-10.2) Total B
[2021-10-07 10:32] LABS: Glucose Point of Care 76 mg/dl (65-105)
[2021-10-07] MEDS: LACTATED RINGERS 1,000 ML 999 ML IV CONT (11:33)
[2021-10-07 11:40] LABS: Rapid Plasma Reagin Non-Reactive (NonReactive)
[2021-10-07 12:13] LABS: Glucose Point of Care 69 mg/dl (65-105)
--- NOTE | 2021-10-07 13:04 | PM.OBPRVD ---
OB - Delivery Note Procedure Delivery date: 10/07/21 Procedure: Events: Diabetes Mellitus Induction method: AROM and Per Pitocin Protocol Delivery monitor: External FHT and External Uterine Route of delivery: Laceration Description: Perineal - 1st Degree Delivery repair: vicryl (3-0) Specimen: Yes (Placenta) Quantitative Blood Loss (ml): 100 Anesthesia type: Epidural Disposition: Floor Baby Date of : 10/07/21 Weeks of gestation at delivery: 39 gender: Female presentation: vertex position: Right Occiput Anterior Placenta delivery description: Spontaneous Cord Vessel Description: 3 Vessels and Nuchal Cord (x2) score one minute: 8 score five minutes: 9
--- NOTE | 2021-10-07 13:05 | PM.OBDSVD ---
DS: Admitting Diagnosis Discharge Date 10/08/21 Admitting Diagnosis IUP 39 wks for MIL for NIDDM DS: Discharge Diagnosis Discharge Diagnosis (1) (normal spontaneous vaginal delivery): Code(s): O80 - Encounter for full-term uncomplicated delivery Status: Acute (2) Type 2 diabetes mellitus in : Code(s): O24.119 - Pre-existing type 2 diabetes mellitus, in , unspecified trimester Status: Acute OB - DS: Summary OB Procedures : NST and Ultrasound OB Procedures Intrapartum: Spontaneous Vag Delivery OB Procedures: : None Peripartum Data Delivery Method: Natural Vaginal Laceration Description: Perineal - 1st Degree complications: none Status at Discharge Functional status at discharge: independent ambulation Overall status at discharge: patient is progressing back to baseline Time Spent with Patient Time attestation: Total time spent providing and/or coordinating discharge services: DS: Data Data Completed and Pending Labs on day of discharge: Labs from last 24 hours 10/07/21 10/07/21 10/07/21 11:11 10:23 08:39 WBC RBC Hgb Hct MCV MCH MCHC RDW Plt Count MPV Immature Gran % (Auto) Neut % (Auto) Lymph % (Auto) [place] % (Auto) Eos % (Auto) Baso % (Auto) Lymph # (Auto) [place] # (Auto) Eos # (Auto) Baso # (Auto) Abs Immat Gran (auto) Absolute Neuts (auto) Absolute Nucleated RBC Nucleated RBC % Sodium Potassium Chloride Carbon Dioxide Anion Gap BUN Creatinine Estim Creat Clear Calc Estimated GFR Glucose POC Capillary Glucose 69 76 74 Uric Acid Calcium Total Bilirubin AST ALT Alkaline Phosphatase Total Protein Albumin RPR Blood Type Antibody Screen 10/07/21 10/07/21 10/07/21 06:28 06:24 06:24 WBC RBC Hgb Hct MCV MCH MCHC RDW Plt Count MPV Immature Gran % (Auto) Neut % (Auto) Lymph % (Auto) [place] % (Auto) Eos % (Auto) Baso % (Auto) Lymph # (Auto) [place] # (Auto) Eos # (Auto) Baso # (Auto) Abs Immat Gran (auto) Absolute Neuts (auto) Absolute Nucleated RBC Nucleated RBC % Sodium 134 L Potassium 3.8 Chloride 109 H Carbon Dioxide 19 L Anion Gap 6 L BUN 9 Creatinine 0.50 L Estim Creat Clear Calc 172 Estimated GFR > 60 Glucose 84 POC Capillary Glucose Uric Acid 5.5 Calcium 9.2 Total Bilirubin 0.3 AST 28 ALT 19 Alkaline Phosphatase 129 H Total Protein 6.0 L Albumin 3.4 L RPR Non-reactive Blood Type O Negative Antibody Screen Negative 10/07/21 06:24 WBC 8.2 RBC 4.42 Hgb 12.0 Hct 36.3 L MCV 82.1 MCH 27.1 MCHC 33.1 RDW 14.7 H Plt Count 269 MPV 10.7 H Immature Gran % (Auto) 0.5 Neut % (Auto) 71.4 Lymph % (Auto) 19.4 [place] % (Auto) 6.6 Eos % (Auto) 1.6 Baso % (Auto) 0.5 Lymph # (Auto) 1.58 [place] # (Auto) 0.5 Eos # (Auto) 0.1 Baso # (Auto) 0.0 Abs Immat Gran (auto) 0.04 H Absolute Neuts (auto) 5.8 Absolute Nucleated RBC 0.0 Nucleated RBC % 0.0 Sodium Potassium Chloride Carbon Dioxide Anion Gap BUN Creatinine Estim Creat Clear Calc Estimated GFR Glucose POC Capillary Glucose Uric Acid Calcium Total Bilirubin AST ALT Alkaline Phosphatase Total Protein Albumin RPR Blood Type Antibody Screen Discharge Plan Discharge Attending physician on discharge: Mari Pearson Discharging Clinician: Mari Pearson Anticipated Discharge Date/Time: 10/08/21 13:07 Patient Disposition: Home, Self-Care Activity: may shower and pelvic rest Diet: diabetic Patient Instructions: Antibiotic Form Stand Alone Forms: General Discharge Information Follow-up/Referrals: Mari Pearson MD [Physician] - 6 Weeks Discharge Medications: Co
[2021-10-07] MEDS: OXYTOCIN 30 UNITS/NS 500 ML 30 UNITS/500 ML BAG 125 UNITS IV CONT (13:20)
[2021-10-07 13:24] LABS: Glucose Point of Care 77 mg/dl (65-105)
[2021-10-07] MEDS: IBUPROFEN 600 MG TABLET PO (15:04)
[2021-10-07] MEDS: BENZOCAINE 20% AER SPR (*SP) 56 GM CAN 1 SPRAY TOPICAL (15:05)
[2021-10-07] MEDS: WITCH HAZEL 40 PADS 1 PAD TOPICAL (15:05)
[2021-10-07 16:20] LABS: Glucose Point of Care 125 mg/dl (65-105)
--- NOTE | 2021-10-07 16:38 | PC.NURSE ---
Patient transferred to post room #283 via wheelchair. Support person present. Oriented to unit, room, information board, rooming in, admission packet and security measures. Patient verbalizes understanding.
[2021-10-07] MEDS: LABETALOL HCL 100 MG TABLET PO (18:41)
[2021-10-07] MEDS: metFORMIN HCL 500 MG TABLET PO (19:43)
[2021-10-07 20:57] LABS: Glucose Point of Care 140 mg/dl (65-105)
[2021-10-08 00:01] VITALS: BP 115/64; PULSE 69; RESP 18; TEMP 36.6; O2SAT 100
[2021-10-08 03:20] VITALS: BP 110/70; PULSE 83; RESP 16; TEMP 36.5; O2SAT 97
[2021-10-08 03:50] LABS: Hematocrit 39.5 % (37.0-47.0); Hemoglobin 12.2 g/dL (12.0-15.0)
[2021-10-08] MEDS: IBUPROFEN 600 MG TABLET PO (04:18)
--- NOTE | 2021-10-08 06:46 | PM.OBPNVD ---
OB - PN: Subj Subjective Date/time seen: 10/08/21 06:46 Patient comments: no complaints and pain well controlled baby status: doing well and bottle feeding well Narrative: plans tubal ligation after 6 weeks OB - PN: Obj Data Labs CBC & Chem 7: 10/08/21 03:44 10/07/21 06:28 Labs: Laboratory Results - last 24 hr 10/07/21 10/07/21 10/07/21 06:24 06:24 06:24 WBC 8.2 RBC 4.42 Hgb 12.0 Hct 36.3 L MCV 82.1 MCH 27.1 MCHC 33.1 RDW 14.7 H Plt Count 269 MPV 10.7 H Immature Gran % (Auto) 0.5 Neut % (Auto) 71.4 Lymph % (Auto) 19.4 Alexander % (Auto) 6.6 Eos % (Auto) 1.6 Baso % (Auto) 0.5 Lymph # (Auto) 1.58 Alexander # (Auto) 0.5 Eos # (Auto) 0.1 Baso # (Auto) 0.0 Abs Immat Gran (auto) 0.04 H Absolute Neuts (auto) 5.8 Absolute Nucleated RBC 0.0 Nucleated RBC % 0.0 POC Capillary Glucose RPR Non-reactive Blood Type O Negative Antibody Screen Negative 10/07/21 10/07/21 10/07/21 08:39 10:23 11:11 WBC RBC Hgb Hct MCV MCH MCHC RDW Plt Count MPV Immature Gran % (Auto) Neut % (Auto) Lymph % (Auto) Alexander % (Auto) Eos % (Auto) Baso % (Auto) Lymph # (Auto) Alexander # (Auto) Eos # (Auto) Baso # (Auto) Abs Immat Gran (auto) Absolute Neuts (auto) Absolute Nucleated RBC Nucleated RBC % POC Capillary Glucose 74 76 69 RPR Blood Type Antibody Screen 10/07/21 10/07/21 10/07/21 12:37 16:14 20:52 WBC RBC Hgb Hct MCV MCH MCHC RDW Plt Count MPV Immature Gran % (Auto) Neut % (Auto) Lymph % (Auto) Alexander % (Auto) Eos % (Auto) Baso % (Auto) Lymph # (Auto) Alexander # (Auto) Eos # (Auto) Baso # (Auto) Abs Immat Gran (auto) Absolute Neuts (auto) Absolute Nucleated RBC Nucleated RBC % POC Capillary Glucose 77 125 H 140 H RPR Blood Type Antibody Screen 10/08/21 03:44 WBC RBC Hgb 12.2 Hct 39.5 MCV MCH MCHC RDW Plt Count MPV Immature Gran % (Auto) Neut % (Auto) Lymph % (Auto) Alexander % (Auto) Eos % (Auto) Baso % (Auto) Lymph # (Auto) Alexander # (Auto) Eos # (Auto) Baso # (Auto) Abs Immat Gran (auto) Absolute Neuts (auto) Absolute Nucleated RBC Nucleated RBC % POC Capillary Glucose RPR Blood Type Antibody Screen OB - PN A/P Assessment and Plan (1) Type 2 diabetes mellitus in : Code(s): O24.119 - Pre-existing type 2 diabetes mellitus, in , unspecified trimester Status: Acute Assessment and Plan: continue metformin (2) (normal spontaneous vaginal delivery): Code(s): O80 - Encounter for full-term uncomplicated delivery Status: Acute Assessment and Plan: discharge home Time Spent With Patient Time: Total time spent is greater than 50% in coordination of care (as documented) at patient's floor/unit and/or counseling patient: Exam : Bimanual exam- vagina & uterus: other (Uterus firm, nt @U)
[2021-10-08 07:46] LABS: Glucose Point of Care 89 mg/dl (65-105)
[2021-10-08 08:00] VITALS: BP 131/86; PULSE 68; RESP 16; TEMP 36.8; O2SAT 100
[2021-10-08 09:18] VITALS: PULSE 76
[2021-10-08] MEDS: metFORMIN HCL 500 MG TABLET PO (09:18)
[2021-10-08] MEDS: LABETALOL HCL 100 MG TABLET PO (09:18)
[2021-10-08 10:54] LABS: Glucose Point of Care 126 mg/dl (65-105)
[2021-10-08 11:58] VITALS: BP 123/65; PULSE 72; RESP 18; TEMP 36.6; O2SAT 99
--- NOTE | 2021-10-08 12:34 | PC.NURSE ---
Patient viewed the discharge video Mother & Baby Care, The First Two Weeks . Patient was given the opportunity and encouraged to ask questions. Patient verbalized understanding of information shared and has been given the mother/baby guide for home reference.
--- NOTE | 2021-10-08 13:26 | WPDANLDPN2 ---
Anes-Prog Note L&D Date/Time: 10/08/21 13:26 Comfortable throughout: labor and delivery Neuraxial method: epidural Epidural/Spinal procedure site: clean & non-tender Neuro status: Neuro function grossly intact. Cardiovascular status: normal Respiratory status: normal Airway patency: baseline Mental status: baseline Post-Op hydration status: normal Vital Signs: Last Vital Signs Temp 36.6 C 10/08/21 11:58 Pulse 72 10/08/21 11:58 Resp 18 10/08/21 11:58 BP 123/65 10/08/21 11:58 Pulse Ox 99 10/08/21 11:58 Pain score (VAS): 0 Post-procedural complaints: none Patient feedback: Patient satisfied with anesthetic care.
[2021-10-09 09:22] VITALS: BP 133/75; PULSE 67; RESP 20; TEMP 36.8; O2SAT 100
== END 2021-10-08 14:30 | disposition home or self-care (01) | DRG 560 ==
LOC: ANHLDR 13:07 → ANHOB2 16:51
PROVIDERS: Admitting Provider Obstetrics & Gynecology Gynecology; Visit Provider Obstetrics & Gynecology Gynecology
DX: O24.429 Gestational diabetes mellitus in childbirth, unspecified control (principal); Z37.0 Single live birth; Z3A.39 39 weeks gestation of pregnancy; O10.92 Unspecified pre-existing hypertension complicating childbirth; O36.8330 Maternal care for abnormalities of the fetal heart rate or rhythm, third trimester, not applicable or unspecified; O70.0 First degree perineal laceration during delivery; O69.81X0 Labor and delivery complicated by cord around neck, without compression, not applicable or unspecified
CPT/HCPCS: 36415; 80053; 82948; 84550; 85014; 85018; 85025; 86592; 86850; 86900; 86901; 88307; A9270; J2590; J2795; J7120

== ENCOUNTER 2022-04-27 17:03 | Outpatient (CLI) | payer OTHER, SELFPAY ==
--- NOTE | 2022-04-27 | ECG_ITS ---
Measurements Intervals [place] Rate: 76 P: 14 TX: 162 QRS: 10 QRSD: 84 T: 33 QT: 384 QTc: 434 Interpretive Statements SINUS RHYTHM VOLTAGE CRITERIA FOR LVH BASELINE ARTIFACT- II, III, AVF BORDERLINE ECG NO PREVIOUS ECG AVAILABLE FOR COMPARISON Electronically Signed On 04-28-2022 14:17:35 CDT by Roberto Foley D.O.
== END 2022-04-27 17:04 | disposition home or self-care (01) ==
LOC: ANHCARD 17:09
PROVIDERS: Visit Provider Anesthesiology
DX: O13.9 Gestational [pregnancy-induced] hypertension without significant proteinuria, unspecified trimester (principal)
CPT/HCPCS: 93005

== ENCOUNTER 2022-05-02 01:49 | Day surgery (SDC) | payer OTHER, SELFPAY ==
--- NOTE | 2022-04-26 14:57 | PC.NURSE ---
Report to the Outpatient Waiting Room, entrance under the green pavilion located off [facility], at time 0600 on date 05/02/22. OR Time: 0730 Time changes happen often and if your time is changed the preop area will call you the afternoon before. - You and your visitor will be asked to self-screen and do not enter if you have any COVID symptoms. - Only one visitor and NO children visitors are allowed at this time. - The patient visitor is requested to leave or wait in car when not with patient due to restrictions. - A mask is required within the hospital. Patients may have clear liquids (water, carbonated beverages, clear teas, apple juice) until 3 hours prior to surgery with a maximum of 20 ounces. - No food from midnight until time of surgery - Infants may have breast milk until 4 hours before surgery, formula 6 hours prior to surgery. - Children will be allowed to drink immediately following surgery. If applicable, please bring a bottle or sippy cup to assist with drinking. Juice, water, soda, and popsicles are readily available. For infants on formula, please bring formula the day of surgery. Pacifiers are allowed. Take the following medications with a SIP of water the morning of surgery: amlodipine, prozac, buspirone_ Medications to discontinue per physician _pt told to hold metformin morning of surgery Date to take last dose Please no make-up, nail latvian, hairspray, perfume, deodorant, or body powder the day of surgery. No jewelry (including any body piercings) or valuables the day of surgery, leave them at home. Please take a shower or bath the night before, or the morning of, surgery with an antibacterial soap. Wear comfortable, loose fitting clothing. Children are encouraged to wear pajamas. - Jewelry must be removed prior to entering the operating room. Rings and piercings that are not removed may be cut off. - The hospital will not accept responsibility for valuables. - Please leave all valuables, including medications, at home the day of surgery. If you are going home after surgery, a licensed freight delivery driver must drive you home. - NO public transportation without another adult. - We recommend that an adult stay with you for 24 hours following discharge. - We also recommend that you do not drive, make important decision, drink alcoholic beverages, or take any drugs that were not prescribed by your health care provider for at least 24 hours after your discharge time. For Pediatric surgeries, we recommend two adults accompany the child home (only one inside the building at this time). Follow any additional instructions given to you from your surgeon. If you or anyone in your household have experienced Covid symptoms in the past week, please notify your surgeon or the nurse liaison at the phone number below for possible testing. Telephone instructions given to _Chitra Freeman_and asked if any additional questions and then verbalized understanding. Patient advised to call surgeon office or pre surgery nurse liaison [phone] if any additional questions.
[2022-05-02] VITALS (9 sets, daily range): BP systolic 122–147; BP diastolic 74–90; PULSE 58–96; RESP 12–20; TEMP 36.9–37; O2SAT 95–98
[2022-05-02] MEDS: KETOROLAC 15 MG/ML VIAL (*BKC) IV PUSH (06:33)
[2022-05-02] MEDS: ACETAMINOPHEN 500 MG TABLET 1000 MG PO (06:33)
[2022-05-02 06:34] LABS: Glucose Point of Care 131 mg/dl (65-105)
[2022-05-02 06:45] LABS: Anion Gap 13 mmol/L (8-16); Blood Urea Nitrogen 13 mg/dL (7-17); Calcium 8.9 mg/dL (8.4-10.2); Carbon Dioxide 20 mmol/L (22-30); Chloride 104 mmol/L (98-107); Estimated CRCL calculation 147 ml/min; Estimated Glomerular Filt Rate > 60; Glucose 140 mg/dL (65-110); Sodium 137 mmol/L (137-145)
--- NOTE | 2022-05-02 06:50 | WPDANESEPPF ---
Anes - Initial Pre Proc Eval Procedure: Operation Date: 05/02/22 07:30 Proposed Procedures p Laparoscopic Bilateral Tubal Ligation with Fallopian Rings - Mari Pearson MD Date/Time: 05/02/22 06:50 Surgeon: Mari Pearson MD Pre Op Diagnosis: Desires Sterilizaiton Patient Data Age: 32 Gender: F Height: 1.75 m Weight: 106.6 kg Last Vital Signs Temp 36.9 C 05/02/22 06:06 Pulse 85 05/02/22 06:06 Resp 16 05/02/22 06:06 BP 139/90 05/02/22 06:06 Pulse Ox 98 05/02/22 06:06 O2 Del Method Room Air 05/02/22 06:06 Allergies Allergy/AdvReac Type Severity Reaction Status Date / Time No Known Allergies Allergy Verified 05/02/22 06:13 Home Medications Medication Instructions Recorded Confirmed Type fluoxetine 20 mg capsule (Prozac) 20 mg PO DAILY 07/21/21 05/02/22 History metformin 1,000 mg tablet 500 mg PO BID #0 tabs 10/08/21 05/02/22 Rx amlodipine 5 mg tablet 5 mg PO DAILY 04/26/22 05/02/22 History buspirone 10 mg tablet 10 mg PO BID 04/26/22 05/02/22 History spironolactone 50 mg tablet 50 mg PO BID 04/26/22 05/02/22 History Laboratory Tests 05/02/22 05/02/22 06:27 06:28 Sodium 137 mmol/L mmol/L (137-145) Potassium 4.0 mmol/L mmol/L (3.4-5.0) Chloride 104 mmol/L mmol/L (98-107) Carbon Dioxide 20 mmol/L L mmol/L (22-30) Anion Gap 13 mmol/L mmol/L (8-16) BUN 13 mg/dL mg/dL (7-17) Creatinine 0.60 mg/dL L mg/dL (0.7-1.0) Estim Creat Clear Calc 147 ml/min ml/min Estimated GFR > 60 (59 - ) Glucose 140 mg/dL H mg/dL (65-110) POC Capillary Glucose 131 mg/dl H mg/dl (65-105) Calcium 8.9 mg/dL mg/dL (8.4-10.2) Patient hx anesthesia problems: none Family hx anesthesia problems: none Results Review: All pre-operative results and documents have been reviewed as part of the pre-operative evaluation. [facility] Past Medical History Medical History Diabetes Hypertension Family History Family History Mother Diabetes mellitus Sibling Diabetes mellitus Depression Father Depression Social History Social History Smoking packs per day: 0.5 Smoking cigarettes per day: 10.0 Years smoked: 9 Smoking pack-years: 4.50 Smoking status: Former smoker Tobacco type: cigarettes Second hand tobacco smoke exposure: No Alcohol intake: never Substance use: never Last use: 2013 Living arrangements: with family Gender identity (if verbalized by the patient): Female Spiritual care concerns: No Anes - Eval Final PreProcedure Day of Procedure 05/02/22 06:50 Patient weight: obese Heart: regular rate and rhythm Lungs: clear to auscultation Airway: Mallampati scale class II Neurological: alert and oriented Last oral intake: >/= 8 hours ASA classification: II Emergent: no Anesthetic plan: proceed Anesthesia type and monitoring: general ETT and standard monitoring Results Review: All pre-operative results and documents have been reviewed as part of the pre-operative evaluation. Informed Consent: The patient's anesthetic plan and its attendant risks and benefits were discussed with the patient/family/POA. Questions were solicited and answers provided to the satisfaction of the patient/family/POA.
[2022-05-02] MEDS: SCOPOLAMINE 1.5 MG PATCH TRANSDERM (06:57)
[2022-05-02] MEDS: LACTATED RINGERS 1,000 ML 30 ML IV CONT ×2 (06:57→08:19)
--- NOTE | 2022-05-02 07:23 | WPDHPUPDATE1 ---
History and Physical Update Update Date/Time: 05/02/22 07:23 History and Physical has been reviewed, including an updated exam of the patient. There are NO changes in the patient's condition. Risks, benefits, and alternatives have been discussed and questions answered. Patient agrees to proceed with procedure.
--- NOTE | 2022-05-02 07:23 | PM.HPGS ---
History of Present Illness History of Present Illness Consent: Risks, benefits, and alternatives have been discussed and questions answered. Patient agrees to proceed with procedure. Chief complaint: Desires Sterilizaiton Narrative: Chitra Ivey is a 32 year old female A2 here for laparoscopic BTL with falope rings. Patient has completed her childbearing and requests permanent control. The permanent and irreversible nature of tubal ligation was reviewed. The risks of infection, bleeding, injury to internal organs, and failure with increased ectopic were reviewed. Patient voices understanding and agrees to proceed. Review of Systems Review of Systems: not repeated day of surgery; patient states no changes in status PMFSH Past Medical History Medical History (Updated 05/02/22 @ 07:26 by Mari Pearson MD) Diabetes Hypertension Migraines (normal spontaneous vaginal delivery) X4 Surgical History Surgical History (Updated 05/02/22 @ 07:26 by Mari Pearson MD) History of elbow surgery Family History Family History Mother Diabetes mellitus Sibling Diabetes mellitus Depression Father Depression Social History Social History Smoking packs per day: 0.5 Smoking cigarettes per day: 10.0 Years smoked: 9 Smoking pack-years: 4.50 Smoking status: Former smoker Tobacco type: cigarettes Second hand tobacco smoke exposure: No Alcohol intake: never Substance use: never Last use: 2013 Living arrangements: with family Gender identity (if verbalized by the patient): Female Spiritual care concerns: No Meds Home Medications and Allergies Home Medications Medication Instructions Recorded Confirmed Type fluoxetine 20 mg capsule (Prozac) 20 mg PO DAILY 07/21/21 05/02/22 History metformin 1,000 mg tablet 500 mg PO BID #0 tabs 10/08/21 05/02/22 Rx amlodipine 5 mg tablet 5 mg PO DAILY 04/26/22 05/02/22 History buspirone 10 mg tablet 10 mg PO BID 04/26/22 05/02/22 History spironolactone 50 mg tablet 50 mg PO BID 04/26/22 05/02/22 History Allergies Allergy/AdvReac Type Severity Reaction Status Date / Time No Known Allergies Allergy Verified 05/02/22 06:13 Vital Signs Vital Signs - 24 hr 05/02/22 06:06 Temperature 98.4 F Pulse Rate 85 Respiratory Rate 16 Blood Pressure 139/90 Pulse Oximetry 98 Oxygen Delivery Room Air Exam Const: General: healthy appearing and alert Orientation/consciousness: patient oriented x3 Resp: Effort & Inspection: normal respiratory effort Auscultation: clear to auscultation bilaterally Cardio: Rate: regular rate Rhythm: regular rhythm GI: GI Palp: Yes Soft to palpation, No Tenderness to palpation present (GI) and No Palpable mass present : External Female Exam: normal external appearance Speculum Exam - Vagina: normal appearance of the vagina and normal vaginal discharge Speculum Exam - Cervix: normal appearance of the cervix Bimanual exam- vagina & uterus: uterine size normal and consistency normal Bimanual Exam- Adnexa, other: normal adnexae and No adnexal tenderness Neuro: General: patient oriented x3 Assessment and Plan Assessment and plan (1) Encounter for sterilization: Code(s): Z30.2 - Encounter for sterilization Status: Acute Assessment and Plan: Plan to proceed with laparoscopic bilateral tubal ligation with Falope rings
--- NOTE | 2022-05-02 08:12 | W.PM.PROC2 ---
Procedure Note - Detailed Date of Procedure 05/02/22 Pre-op Diagnosis Desires Sterilizaiton Post-op Diagnosis Same Procedure Performed Laparoscopic bilateral tubal ligation with Falope ring Surgeon Mari Pearson MD Anesthesia General Findings Uterus sounds to 7cm. Tubes, ovaries, and uterus appear grossly normal Description of Procedure The patient was taken to the operating room and placed under anesthesia in the dorsal lithotomy position. She was prepped and draped in the usual sterile fashion. The bladder was drained with a red rubber catheter. The bivalve speculum was placed in the vagina and the cervix grasped on the anterior lip with a tenaculum. The uterus is sounded to 7cm. The JEET manipulator is placed and the tenaculum and speculum removed. The attention was turned to the abdomen where a vertical skin incision was made at the base of the umbilicus. The abdomen is tented and the Veress needle placed. The short Veress needle was noted to be too short. The long Veress needle was opened and placed and opening patient pressure was 10mmHg. Water drop test is normal. Pneumoperitoneum was obtained to a patient pressure of 15. The Veress needle was removed and the long 5mm trocar placed. Patient was placed in Trendelenburg and the skin incision was made 2cm above symphysis pubis for the 8mm trocar which was placed under direct visualization. The blunt probe was used to bring the tubes into view. The ring applicator was used to grasp the left tube and bring a loop of tube into the applicator where ring was then applied. The identical procedure was performed on the opposite side. Picture documentation was taken. Instruments are removed and pneumoperitoneum was reduced. Skin incisions were closed using 4-0 nylon in an interrupted fashion. Vaginal instruments are removed. Patient is awakened from anesthesia and taken to recovery in stable condition. Sponge, needle, and instrument counts are correct per the OR staff. Estimated Blood Loss 5 Drains No Packing No Pathology None sent Complications No immediate complications Disposition PACU
[2022-05-02] MEDS: fentaNYL CITRATE INJ (*CRX) 100 MCG/2 ML VIAL 25 MCG IV PUSH ×4 (08:25→08:50)
[2022-05-02 08:29] LABS: Glucose Point of Care 164 mg/dl (65-105)
[2022-05-02] MEDS: ONDANSETRON INJ 4 MG/2 ML VIAL IV PUSH (08:42)
[2022-05-02] MEDS: diphenhydrAMINE HCl INJ 50 MG/ML VIAL 25 MG IV PUSH (08:57)
[2022-05-02] MEDS: oxyCODONE HCL (*CRX) 5 MG TAB IR PO (09:32)
== END 2022-05-02 10:31 | disposition home or self-care (01) ==
PROVIDERS: Anesthesiology; Visit Provider Obstetrics & Gynecology Gynecology
PROC: (CPT 58671; principal; 2022-05-02 07:30)
DX: Z30.2 Encounter for sterilization (principal); I10 Essential (primary) hypertension; E11.9 Type 2 diabetes mellitus without complications; Z87.891 Personal history of nicotine dependence; Z79.84 Long term (current) use of oral hypoglycemic drugs
CPT/HCPCS: 58671; 36415; 80048; 82948; A4264; A9270; J0330; J1100; J1200; J1885; J2250; J2405; J2710; J3010; J7120

== ENCOUNTER 2023-02-07 16:45 | Emergency (ER) | payer OTHER, SELFPAY ==
--- NOTE | ~2023-02-07 | CT_ITS ---
Non-contrast Head CT History: Head injury COMPARISON: 11/16/2010 Technique: Axial non-contrast imaging of the brain was performed. Dose reduction technique was used on this scan by utilizing automated exposure control and iterative reconstruction technique. The dose -length product (DLP) was 605.33 mGy-cm. Findings: There is no evidence of intracranial hemorrhage, mass lesion, or acute infarct. Brain par enchyma appears normal. The ventricles and subarachnoid spaces are normal in size. The calvarium ap pears normal. The visualized paranasal sinuses and mastoid air cells are clear. Impression: No significant abnormality seen. Reviewed, dictated and finalized at location . Impression: No significant abnormality seen.
--- NOTE | ~2023-02-07 | CT_ITS ---
Noncontrast CT scan of the cervical spine Technique: Multiple contiguous axial [address] images of the cervical spine were obtained and rec onstructed in 2D sagittal and coronal planes on the acquisition scanner. Dose reduction technique was used on this scan by utilizing automated exposure control, adjustment of the mA and/or kV according to patient size. The dose-length product (DLP) was 498.28 mGy-cm. Clinical History: Pain Findings: No fractures or dislocations. There is mild reversal of the normal cervical lordosis. No o ther significant osseous abnormality seen. The intervertebral disc spaces are preserved. No preverte bral soft tissue swelling. Impression: No fracture or subluxation of the cervical spine. Reviewed, dictated and finalized at location . Impression: No fracture or subluxation of the cervical spine.
--- NOTE | ~2023-02-07 | XR_ITS ---
AP and lateral views of the left tibia/fibula Clinical History: Injury Findings: No acute fracture or dislocation is seen. Osseous alignment is anatomic. Joint spaces are p reserved without significant erosive or degenerative change. Soft tissues are unremarkable. Impression: Unremarkable left tib-fib radiographs. Reviewed, dictated and finalized at [facility]. Impression: Unremarkable left tib-fib radiographs.
[2023-02-07 16:48] VITALS: BP 148/99; PULSE 100; RESP 18; TEMP 36.8; O2SAT 99
--- NOTE | 2023-02-07 17:39 | ED.HEATRA ---
HPI - Head Injury General Chief complaint: Head Injury Stated complaint: Fall-hit head Time Seen by Provider: 02/07/23 17:01 History of Present Illness HPI Narrative: 32-year-old female reports for evaluation for head pain, neck pain, and left leg pain after a fall that occurred 2 hours prior to arrival. Patient states she was sitting on bed deck that was rotted, fell through a rotten plank and hit her head on concrete. She denies LOC. She rates pain to the vertex of her scalp, denies laceration or bleeding. She reports photophobia, otherwise no vision changes. She also reports pain to the left mcconnell. Denies other injuries acquired during the fall. She is ambulatory difficulty. She has not taken anything for pain. Related Data Home Medications Medication Instructions Recorded Confirmed fluoxetine 20 mg capsule (Prozac) 20 mg PO DAILY 07/21/21 05/02/22 amlodipine 5 mg tablet 5 mg PO DAILY 04/26/22 05/02/22 buspirone 10 mg tablet 10 mg PO BID 04/26/22 05/02/22 spironolactone 50 mg tablet 50 mg PO BID 04/26/22 05/02/22 Allergies Allergy/AdvReac Type Severity Reaction Status Date / Time No Known Allergies Allergy Verified 02/07/23 16:46 Review of Systems Review of Systems: CONSTITUTIONAL: Denies fever, chills EYES: Denies visual changes, redness, or discharge. ENT: Denies rhinorrhea, congestion, sore throat, or otalgia. CARDIOVASCULAR: Denies chest pain, palpitations, or edema. RESPIRATORY: Denies cough or dyspnea. GASTROINTESTINAL: Denies abdominal pain, nausea, vomiting, or diarrhea. GENITOURINARY: Denies dysuria or hematuria. SKIN: Denies rash or itching. MUSCULOSKELETAL: See HPI NEUROLOGIC: See HPI PSYCHIATRIC: Denies anxiety or depression. [facility] Past Medical History Medical History Diabetes Hypertension Migraines (normal spontaneous vaginal delivery) X4 Surgical History Surgical History History of elbow surgery Family History Family History Mother Diabetes mellitus Sibling Diabetes mellitus Depression Father Depression Social History Social History Smoking packs per day: 0.5 Smoking cigarettes per day: 10.0 Years smoked: 9 Smoking pack-years: 4.50 Smoking status: Former smoker Tobacco type: cigarettes Second hand tobacco smoke exposure: No Alcohol intake: never Substance use: never Last use: 2013 Living arrangements: with family Gender identity (if verbalized by the patient): Female Spiritual care concerns: No Exam Narrative: GENERAL: Well-appearing, in no acute distress. Patient resting comfortably in exam bed. She is pleasant and conversational. HEAD: Tenderness and focal edema to the vertex of the scalp with ecchymosis and petechiae. No lacerations, abrasions or skin compromise throughout the scalp, face or neck. EYES: PERRLA, EOMI ENT: Nares clear. Mucous membranes moist. Oropharynx without tonsillar hypertrophy exudate or other lesions. NECK: Midline cervica spinous tenderness w/o step offs or deformities. Tenderness over the left trapezius. BACK: No midline vertebral tenderness of thoracic, lumbar sacral spine. CHEST: No respiratory distress. Clear to auscultation, no adventitious breath sounds. HEART: Regular rate and rhythm. No murmur heard. Normal peripheral pulses. ABDOMEN: Soft, nontender, normal active bowel sounds. EXTREMITIES: Tenderness, edema and ecchymosis to the left mid-proximal tibia without skin compromise. Full range of motion of all extremities. Radial DP pulses 2+. SKIN: Warm, dry, no rash. NEURO: No focal deficits. Alert and oriented x3. Cranial nerves II through XII intact. Strength 5 out of 5 in bilateral upper and lower extremities. Sensation intact throughout. Patient ambulatory without d
[2023-02-07] MEDS: ACETAMINOPHEN 325 MG TABLET 650 MG PO (18:00)
== END 2023-02-07 18:49 | disposition home or self-care (01) ==
PROVIDERS: Emergency Provider Physician Assistant
DX: S00.03XA Contusion of scalp, initial encounter (principal); S80.12XA Contusion of left lower leg, initial encounter; E11.9 Type 2 diabetes mellitus without complications; I10 Essential (primary) hypertension; Z87.891 Personal history of nicotine dependence; Z79.84 Long term (current) use of oral hypoglycemic drugs; W13.8XXA Fall from, out of or through other building or structure, initial encounter
CPT/HCPCS: 70450; 72125; 73590; 99284; A9270

== ENCOUNTER 2023-10-17 16:19 | Outpatient (CLI) | payer OTHER, SELFPAY ==
--- NOTE | ~2023-10-17 | US_ITS ---
EXAMINATION: US pelvic complete w TV DATE: 10/17/2023 17:12 INDICATION: PELVIC PAIN TECHNIQUE: Multiple transabdominal and endovaginal sonographic images of the pelvis were obtained. COMPARISON: 07/08/2018 FINDINGS: Uterus: 9.7 x 4.7 x 6.6 cm. Somewhat focal area of heterogeneous echogenicity in the uterine parenchy ma of the anterior uterine body, with corresponding increased color Doppler flow. Endometrial complex measures 7 mm. Right Ovary: 3.5 x 2.4 x 2.5 cm. Vascular flow is present. Left Ovary: 3.9 x 3.2 x 3.5 cm. Vascular flow is present. There is physiologic free fluid in the pelvis. IMPRESSION: Heterogeneous anterior uterine body parenchymal area which may represent an ill-defined fibroid or fo carlos adenomyosis. Otherwise normal pelvic ultrasound findings. Reviewed, dictated and finalized at location [facility]. IMPRESSION: Heterogeneous anterior uterine body parenchymal area which may represent an ill -defined fibroid or focal adenomyosis. Otherwise normal pelvic ultrasound findings.
== END 2023-10-17 16:20 | disposition home or self-care (01) ==
LOC: ANHIMG 16:19
PROVIDERS: Visit Provider Obstetrics & Gynecology Gynecology
DX: R10.9 Unspecified abdominal pain (principal)
CPT/HCPCS: 76830; 76856